=== PATIENT | female | born 1935 | race Caucasian/White ===

== ENCOUNTER 2017-07-15 03:32 | Inpatient (IN) | payer MEDICAID ==
[~2017-07-15] VITALS: Ht 167.6 cm; Wt 73.1 kg
[2017-07-15] VITALS (7 sets, daily range): BP systolic 139–163; BP diastolic 56–81
[~2017-07-15 03:32] MED LIST: AMLO5TAB4 PO; ASPI-1159 PO; ATOR20TA PO; INSU3INS6 SUBCUT; LOSA100T14 PO; OCD MT
[2017-07-15] MEDS ORDERED: ONDANSETRON HCL 4MG/2ML VIAL IV STA (04:03)
[2017-07-15] MEDS ORDERED: SODIUM CHLORIDE 0.9% 1,000 ML IV ONE (04:03)
[2017-07-15] MEDS ORDERED: MORPHINE SULFATE 4 MG/ML CPJ (NOT FOR IM USE) IV ONE (04:15)
[2017-07-15] MEDS ORDERED: DEXT 10% WATER 1,000 ML IV ONE (04:38)
[2017-07-15 04:49] LABS: CARBON DIOXIDE 19 mEq/L (21-32); CHLORIDE 115 mEq/L (98-107); TROPONIN I < 0.02 ng/mL (0.00-0.04)
[2017-07-15 04:50] LABS: BASOPHILS % 0.3 % (0.0-2.0); EOSINOPHILS % 0.1 % (0.0-5.0); HEMATOCRIT. 32.2 % (36.0-48.0); HEMOGLOBIN. 10.8 g/dL (12.0-16.0); LYMPHOCYTES % 17.9 % (20.0-50.0); MEAN CORPUSCULAR HEMOGLOBIN 30.2 pg (28.0-32.0); MEAN CORPUSCULAR VOLUME 90.1 fL (81.0-99.0); MEAN PLATELET VOLUME 8.8 fl (7.4-10.4); MONOCYTES % 2.4 % (2.0-8.0); NEUTROPHILS % 79.3 % (40.0-76.0); PLATELET 193 x1000/uL (130-400); RED BLOOD CELL COUNT 3.58 mill/uL (4.2-5.4)
[2017-07-15] MEDS ORDERED: ACETAMINOPHEN 325MG TABLET PO PRN ×2 (05:30→08:15)
[2017-07-15 06:46] LABS: CLARITY URINE CLEAR (CLEAR); COLOR URINE YELLOW (YELLOW); GLUCOSE URINE TRACE (NEGATIVE); KETONES URINE NEGATIVE (NEGATIVE); LEUKOCYTE ESTERASE URINE NEGATIVE (NEGATIVE); NITRITE URINE NEGATIVE (NEGATIVE); OCCULT BLOOD URINE TRACE (NEGATIVE); PH URINE 5.5 (4.5-8.0); PROTEIN URINE 4+ (NEGATIVE); SPECIFIC GRAVITY URINE 1.018 (1.005-1.030); UROBILINOGEN URINE 0.2 E.U./dL (0.2-1.0)
[2017-07-15] MEDS ORDERED: NA PHOS,M-B/NA PHOS,DI-BA ENEMA 118ML PR PRN (08:15)
[2017-07-15] MEDS ORDERED: ENOXAPARIN 40MG/0.4ML SYR SUBCUT SCH (08:15)
[2017-07-15] MEDS ORDERED: GUAIFENESIN 200MG/10ML SUGAR FREE UDC PO PRN (08:15)
[2017-07-15] MEDS ORDERED: MAGNESIUM/ALUMINUM HYDROXIDE/SIMETHICONE 30ML UDC PO PRN (08:15)
[2017-07-15] MEDS ORDERED: HYDROCODONE/ACETAMINOPHEN 5/325MG TABLET PO PRN (08:15)
[2017-07-15] MEDS ORDERED: ACETAMINOPHEN 650MG/20.3ML UDC GT PRN (08:15)
[2017-07-15] MEDS ORDERED: DEXTROSE 50% WATER 50ML SYRINGE IV PRN (08:15)
[2017-07-15] MEDS ORDERED: ACETAMINOPHEN 650MG SUPP PR PRN (08:15)
[2017-07-15] MEDS ORDERED: ONDANSETRON HCL 4MG/2ML VIAL IV PRN (08:15)
[2017-07-15] MEDS ORDERED: DOCUSATE SODIUM 100MG CAPSULE PO PRN (08:15)
[2017-07-15] MEDS ORDERED: SODIUM CHLORIDE 0.45% 1,000 ML IV SCH (08:15)
[2017-07-15] MEDS ORDERED: IPRATROPIUM/ALBUTEROL 0.5-3(2.5)MG/3ML NEB INH PRN (11:00)
[2017-07-15 12:30] LABS: CHLORIDE 114 mEq/L (98-107)
[2017-07-15 12:38] LABS: CARBON DIOXIDE 21 mEq/L (21-32)
[2017-07-15] MEDS: INSULIN LISPRO 100 UNITS/ML SUBCUT SCH ×3 (13:00→20:57)
[2017-07-15] MEDS: BLOOD SUGAR DIAGNOSTIC STRIP TEST SCH ×3 (13:21→20:46)
[2017-07-15] MEDS: SODIUM CHLORIDE 0.9% INJ 3ML FLUSH IVF SCH ×2 (13:22→22:00)
[2017-07-15] MEDS: ENOXAPARIN 30MG/0.3ML SYR SUBCUT SCH (13:23)
[2017-07-15 16:20] LABS: CREATINE KINASE 136 IU/L (26-192); TROPONIN I < 0.02 ng/mL (0.00-0.04)
[2017-07-15] MEDS ORDERED: FUROSEMIDE 40MG/4ML VIAL IVP NR (18:30)
[2017-07-15 18:42] LABS: BG BASE EXCESS -5.9 mmol/L (-2.0-2.0); BG CARBOXYHEMOGLOBIN 0.3 % (0.5-1.5); BG DEOXYHEMOGLOBIN 9.2 % (0.0-5.0); BG FRACTION INSPIRED OXYGEN 32; BG HCO3 ACT 19.3 mmol/L (22.0-26.0); BG METHEMOGLOBIN 0.3 % (0.0-1.5); BG OXYGEN SATURATION 90.7 % (92.0-98.5); BG OXYHEMOGLOBIN 90.2 % (94.0-97.0); BG PCO2 36.6 mmHg (35.0-45.0); BG PH 7.339 (7.350-7.450); BG PO2 59.2 mmHg (75.0-100.0); BG SAMPLE SITE RIGHT RADIAL; BG TOTAL HEMOGLOBIN 10.8 g/dL (12.0-18.0); BG VENT MODE NASAL CANNULA
[2017-07-15] MEDS: CLONIDINE 0.1MG TABLET PO PRN (19:08)
[2017-07-15 23:37] LABS: CREATINE KINASE 118 IU/L (26-192); TROPONIN I < 0.02 ng/mL (0.00-0.04)
[2017-07-16] VITALS (11 sets, daily range): BP systolic 130–168; BP diastolic 46–92
[2017-07-16] MEDS: CLONIDINE 0.1MG TABLET PO PRN (02:26)
[2017-07-16] MEDS: SODIUM CHLORIDE 0.9% INJ 3ML FLUSH IVF SCH ×3 (06:00→21:02)
[2017-07-16] MEDS: INSULIN LISPRO 100 UNITS/ML SUBCUT SCH ×4 (07:30→21:02)
[2017-07-16] MEDS: BLOOD SUGAR DIAGNOSTIC STRIP TEST SCH ×4 (07:30→20:58)
[2017-07-16] MEDS ORDERED: FURO20TA4 PO (08:23)
[2017-07-16] MEDS ORDERED: RANI150C12 PO (08:23)
[2017-07-16] MEDS ORDERED: OMEP20CA10 PO (08:23)
[2017-07-16] MEDS ORDERED: TRAM50TA3 PO (08:23)
[2017-07-16] MEDS ORDERED: SITA50TA3 PO (08:23)
[2017-07-16] MEDS ORDERED: ALEN70TA46 PO (08:23)
[2017-07-16] MEDS ORDERED: [UNRECOGNIZED DRUG - OTHER] (08:23)
[2017-07-16] MEDS: ENOXAPARIN 30MG/0.3ML SYR SUBCUT SCH (08:43)
[2017-07-16 11:18] LABS: *AMPHETAMINES SCREEN URINE NEGATIVE (NEGATIVE); *BARBITURATES SCREEN URINE NEGATIVE (NEGATIVE); *BENZODIAZEPINES SCREEN URINE NEGATIVE (NEGATIVE); *COCAINE SCREEN URINE NEGATIVE (NEGATIVE); CANNABINOID URINE SCREEN NEGATIVE (NEGATIVE); METHADONE URINE SCREEN NEGATIVE (NEGATIVE); OPIATES URINE SCREEN PRESUMTIVE POSITIVE (NEGATIVE); PHENCYCLIDINE URINE SCREEN NEGATIVE (NEGATIVE)
[2017-07-16] MEDS ORDERED: FUROSEMIDE 40MG TABLET PO SCH (15:45)
[2017-07-16] MEDS ORDERED: BENAZEPRIL 20MG TABLET PO SCH (15:45)
[2017-07-16] MEDS ORDERED: FUROSEMIDE 40MG/4ML VIAL IVP SCH (17:30)
[2017-07-16] MEDS ORDERED: LEVOFLOXACIN 500MG TABLET PO SCH (17:30)
[2017-07-16] MEDS ORDERED: LEVOFLOXACIN 500MG TABLET PO NR (18:00)
[2017-07-16 18:40] LABS: BASOPHILS % 0.4 % (0.0-2.0); LYMPHOCYTES % 28.4 % (20.0-50.0); MEAN CORPUSCULAR HEMOGLOBIN 30.1 pg (28.0-32.0); MEAN CORPUSCULAR VOLUME 90.4 fL (81.0-99.0); MONOCYTES % 11.8 % (2.0-8.0); NEUTROPHILS % 56.4 % (40.0-76.0); PLATELET 155 x1000/uL (130-400); RED BLOOD CELL COUNT 2.98 mill/uL (4.2-5.4); RED CELL DISTRIBUTION WIDTH 13.9 % (11.6-14.6)
[2017-07-16 18:53] LABS: CARBON DIOXIDE 22 mEq/L (21-32); CHLORIDE 113 mEq/L (98-107)
[2017-07-16 20:51] LABS: CLARITY URINE CLEAR (CLEAR); COLOR URINE YELLOW (YELLOW); GLUCOSE URINE TRACE (NEGATIVE); KETONES URINE NEGATIVE (NEGATIVE); LEUKOCYTE ESTERASE URINE NEGATIVE (NEGATIVE); NITRITE URINE NEGATIVE (NEGATIVE); OCCULT BLOOD URINE 1+ (NEGATIVE); PH URINE 6.5 (4.5-8.0); PROTEIN URINE 3+ (NEGATIVE); UROBILINOGEN URINE 0.2 E.U./dL (0.2-1.0)
[2017-07-17] VITALS (7 sets, daily range): BP systolic 140–176; BP diastolic 55–68
[2017-07-17] MEDS: CLONIDINE 0.1MG TABLET PO PRN (04:42)
[2017-07-17] MEDS: INSULIN LISPRO 100 UNITS/ML SUBCUT SCH ×2 (08:00→12:08)
[2017-07-17] MEDS: BLOOD SUGAR DIAGNOSTIC STRIP TEST SCH ×2 (08:02→11:38)
[2017-07-17] MEDS: ENOXAPARIN 30MG/0.3ML SYR SUBCUT SCH (08:38)
[2017-07-17] MEDS: SODIUM CHLORIDE 0.9% INJ 3ML FLUSH IVF SCH (14:01)
[2017-07-17] MEDS ORDERED: LEVO250T2 PO (14:54)
[2017-07-18] MEDS ORDERED: LEVOFLOXACIN 250MG TABLET PO SCH (11:00)
== END 2017-07-17 15:45 | disposition home or self-care (01) | DRG 52 ==
LOC: ER 03:37 → ENRESERV 06:56 → CANRESERV 06:56 → 5EST 09:09 → EDBEDREQTM 09:11 → EDBEDREQSVC 09:11 → ENRESERV 09:54 → 5EST 07-16 21:54
PROVIDERS: ADMIT Family Medicine; ATTEND Family Medicine
DX: G93.41 Metabolic encephalopathy (principal); N17.0 Acute kidney failure with tubular necrosis; J96.01 Acute respiratory failure with hypoxia; I13.0 Hypertensive heart and chronic kidney disease with heart failure and stage 1 through stage 4 chronic kidney disease, or unspecified chronic kidney disease; E11.21 Type 2 diabetes mellitus with diabetic nephropathy; E11.649 Type 2 diabetes mellitus with hypoglycemia without coma; I50.9 Heart failure, unspecified; E11.22 Type 2 diabetes mellitus with diabetic chronic kidney disease; E78.5 Hyperlipidemia, unspecified; E87.5 Hyperkalemia; N18.4 Chronic kidney disease, stage 4 (severe); J44.1 Chronic obstructive pulmonary disease with (acute) exacerbation; E66.9 Obesity, unspecified; R09.02 Hypoxemia; Z79.4 Long term (current) use of insulin; Z68.26 Body mass index [BMI] 26.0-26.9, adult; Z79.899 Other long term (current) drug therapy; Z79.82 Long term (current) use of aspirin
CPT/HCPCS: 36415; 36600; 70450; 71010; 76770; 80048; 80053; 80305; 81001; 82040; 82375; 82550; 82805; 82962; 83036; 84484; 85025; 93005; 93306; 96361; 96374; 96375; 99285; J1650; J1815; J1940; J2270; J2405; J7030

== ENCOUNTER 2018-07-31 22:38 | Inpatient (IN) | payer MEDICAID ==
[~2018-07-31] VITALS: Ht 157.5 cm; Wt 59.6 kg
[~2018-07-31 22:38] MED LIST changes: -ATOR20TA PO; +FURO-151 PO; +HYDR-4135 PO; -INSU3INS6 SUBCUT; +LEVO500S PO; -LOSA100T14 PO; +MULT-1146 PO; +RANI150C12 PO; +TIMO5DRO27 OP
[2018-07-31] MEDS ORDERED: ACETAMINOPHEN 325MG TABLET PO STA (23:58)
[2018-07-31] MEDS ORDERED: ONDANSETRON HCL 4MG/2ML INJ IV STA (23:58)
[2018-08-01] MEDS ORDERED: VANCOMYCIN 1 G PREMIX 200 ML IV ONE
[2018-08-01] MEDS ORDERED: PIPERACILLIN/TAZ 3.375G PREMIX 50 ML IV ONE
[2018-08-01 01:00] LABS: BASOPHILS % 0.1 % (0.0-2.0); EOSINOPHILS % 0.5 % (0.0-5.0); HEMATOCRIT. 28.6 % (36.0-48.0); LYMPHOCYTES % 9.1 % (20.0-50.0); MEAN CORPUSCULAR HEMOGLOBIN 34.9 pg (28.0-32.0); MEAN CORPUSCULAR VOLUME 99.7 fL (81.0-99.0); MONOCYTES % 7.5 % (2.0-8.0); NEUTROPHILS % 82.8 % (40.0-76.0); PLATELET 143 x1000/uL (130-400); RED BLOOD CELL COUNT 2.86 mill/uL (4.2-5.4); RED CELL DISTRIBUTION WIDTH 14.4 % (11.6-14.6)
[2018-08-01 01:01] LABS: PROTHROMBIN TIME 10.4 sec (9.1-11.1)
[2018-08-01 01:11] LABS: CHLORIDE 100 mEq/L (98-107)
[2018-08-01 01:56] LABS: CLARITY URINE CLEAR (CLEAR); COLOR URINE YELLOW (YELLOW); KETONES URINE NEGATIVE (NEGATIVE); LEUKOCYTE ESTERASE URINE NEGATIVE (NEGATIVE); NITRITE URINE NEGATIVE (NEGATIVE); OCCULT BLOOD URINE TRACE (NEGATIVE); PH URINE >=9.0 (4.5-8.0); PROTEIN URINE 4+ (NEGATIVE); SPECIFIC GRAVITY URINE 1.014 (1.005-1.030); UROBILINOGEN URINE 0.2 E.U./dL (0.2-1.0)
[2018-08-01] MEDS ORDERED: SODIUM BICARBONATE 8.4% 1 MEQ/ML 50ML SYR IV ONE (03:15)
[2018-08-01] MEDS ORDERED: DEXTROSE 50% WATER 50ML SYRINGE IV ONE (03:15)
[2018-08-01] MEDS ORDERED: INSULIN REGULAR (HUMULIN R) 300UNITS/3ML IV ONE (03:15)
[2018-08-01] MEDS ORDERED: IPRATROPIUM/ALBUTEROL 0.5-3(2.5)MG/3ML NEB INH PRN (06:00)
[2018-08-01] MEDS ORDERED: ACETAMINOPHEN 325MG TABLET PO PRN (06:00)
[2018-08-01] MEDS ORDERED: ONDANSETRON HCL 4MG/2ML INJ IV PRN (06:00)
[2018-08-01] MEDS ORDERED: DOCUSATE SODIUM 100MG CAPSULE PO PRN (06:00)
[2018-08-01 07:12] LABS: CREATINE KINASE MB FRACTION 1.1 ng/mL (0.5-3.6)
[2018-08-01 09:30] LABS: AMMONIA 11 uMol/L (<32)
[2018-08-01 09:41] LABS: T4 FREE 0.98 ng/dL (0.76-1.46)
[2018-08-01 09:45] VITALS: BP 169/58
[2018-08-01 09:55] LABS: FOLIC ACID (FOLATE) SERUM >20 ng/mL ng/mL (>5.38); VITAMIN B12 SERUM 418 pg/mL (211-911)
[2018-08-01] MEDS ORDERED: DEXTROSE 50% WATER 50ML SYRINGE IV PRN (10:30)
[2018-08-01 12:00] VITALS: BP_SYST 141; BP_SYST 166; BP_DIAS 56; BP_DIAS 59
[2018-08-01] MEDS: BLOOD SUGAR DIAGNOSTIC STRIP TEST SCH ×3 (12:14→20:40)
[2018-08-01] MEDS: INSULIN LISPRO 100 UNITS/ML SUBCUT SCH ×3 (12:15→20:40)
[2018-08-01 16:00] VITALS: BP 150/47
[2018-08-01 16:57] LABS: CREATINE KINASE 62 IU/L (26-192); CREATINE KINASE MB FRACTION < 1.0 ng/mL (0.5-3.6)
[2018-08-01 20:00] VITALS: BP 127/46
[2018-08-01] MEDS ORDERED: VANCOMYCIN 750 MG PREMIX 150 ML IV NR (20:00)
[2018-08-01] MEDS: IRON SUCROSE COMPLEX 100 MG/5 ML ML IV SCH (20:40)
[2018-08-01] MEDS ORDERED: EPOETIN ALFA 4000UNITS/ML VIAL SUBCUT SCH (21:00)
[2018-08-01 23:26] LABS: *AMPHETAMINES SCREEN URINE NEGATIVE (NEGATIVE); *BARBITURATES SCREEN URINE NEGATIVE (NEGATIVE); *BENZODIAZEPINES SCREEN URINE NEGATIVE (NEGATIVE); *COCAINE SCREEN URINE NEGATIVE (NEGATIVE); CANNABINOID URINE SCREEN NEGATIVE (NEGATIVE); METHADONE URINE SCREEN NEGATIVE (NEGATIVE); OPIATES URINE SCREEN NEGATIVE (NEGATIVE); PHENCYCLIDINE URINE SCREEN NEGATIVE (NEGATIVE)
[2018-08-02] VITALS: BP 143/50
[2018-08-02 04:00] VITALS: BP 134/51
[2018-08-02 06:30] LABS: BASOPHILS % 0.3 % (0.0-2.0); EOSINOPHILS % 2.5 % (0.0-5.0); HEMATOCRIT. 24.4 % (36.0-48.0); HEMOGLOBIN. 8.4 g/dL (12.0-16.0); LYMPHOCYTES % 19.4 % (20.0-50.0); MEAN CORPUSCULAR HEMOGLOBIN 34.6 pg (28.0-32.0); MEAN CORPUSCULAR VOLUME 100.7 fL (81.0-99.0); MEAN PLATELET VOLUME 8.6 fl (7.4-10.4); MONOCYTES % 12.5 % (2.0-8.0); NEUTROPHILS % 65.3 % (40.0-76.0); PLATELET 120 x1000/uL (130-400); RED BLOOD CELL COUNT 2.43 mill/uL (4.2-5.4); RED CELL DISTRIBUTION WIDTH 14.3 % (11.6-14.6)
[2018-08-02] MEDS: BLOOD SUGAR DIAGNOSTIC STRIP TEST SCH ×4 (06:59→20:37)
[2018-08-02] MEDS: INSULIN LISPRO 100 UNITS/ML SUBCUT SCH ×4 (07:00→20:36)
[2018-08-02 07:02] LABS: PHOSPHORUS 5.6 mg/dL (2.5-4.9)
[2018-08-02 08:00] VITALS: BP 138/51
[2018-08-02] MEDS ORDERED: PNEUMOCOCCAL 23-VAL P-SAC VAC 0.5 ML IM ONE (09:00)
[2018-08-02] MEDS ORDERED: INFLUENZA VIRUS VACCINE(AFLURIA) 0.5ML SYR IM ONE (09:00)
[2018-08-02] MEDS ORDERED: TUBERCULIN,PURIF.PROT.DERIV. 5 TU/0.1 ML SYR ID ONE (09:00)
[2018-08-02] MEDS: FOLIC ACID/VITAMIN B COMP W-C TABLET PO SCH (10:13)
[2018-08-02] MEDS: CEFTRIAXONE 1 G PREMIX 50 ML IV SCH (10:14)
[2018-08-02] MEDS: SEVELAMER CARBONATE 800 MG TABLET PO SCH ×3 (10:18→18:03)
[2018-08-02 12:00] VITALS: BP 160/51
[2018-08-02] MEDS: PANTOPRAZOLE 40MG DR TABLET PO SCH (13:08)
[2018-08-02 16:00] VITALS: BP 169/65
[2018-08-02] MEDS ORDERED: FERR325T6 MT (17:09)
[2018-08-02] MEDS ORDERED: SIMV20TA6 MT (17:10)
[2018-08-02] MEDS ORDERED: CALC0.253 MT (17:11)
[2018-08-02] MEDS ORDERED: DOCU-138 MT (17:13)
[2018-08-02] MEDS ORDERED: ALENDRONATE PO (17:15)
[2018-08-02 20:00] VITALS: BP 175/56
[2018-08-02] MEDS: CLONIDINE 0.1MG TABLET PO PRN (20:32)
[2018-08-02] MEDS: IRON SUCROSE COMPLEX 100 MG/5 ML ML IV SCH (20:33)
[2018-08-03] VITALS: BP 158/49
[2018-08-03 04:00] VITALS: BP 126/47
[2018-08-03] MEDS: PANTOPRAZOLE 40MG DR TABLET PO SCH (06:17)
[2018-08-03] MEDS: INSULIN LISPRO 100 UNITS/ML SUBCUT SCH ×4 (06:51→20:36)
[2018-08-03] MEDS: BLOOD SUGAR DIAGNOSTIC STRIP TEST SCH ×4 (06:51→20:44)
[2018-08-03 07:56] LABS: BASOPHILS % 0.3 % (0.0-2.0); EOSINOPHILS % 3.9 % (0.0-5.0); HEMATOCRIT. 21.5 % (36.0-48.0); HEMOGLOBIN. 7.5 g/dL (12.0-16.0); LYMPHOCYTES % 27.4 % (20.0-50.0); MEAN CORPUSCULAR HEMOGLOBIN 34.6 pg (28.0-32.0); MEAN CORPUSCULAR VOLUME 99.5 fL (81.0-99.0); MEAN PLATELET VOLUME 8.7 fl (7.4-10.4); NEUTROPHILS % 56.4 % (40.0-76.0); PLATELET 115 x1000/uL (130-400); RED BLOOD CELL COUNT 2.16 mill/uL (4.2-5.4); RED CELL DISTRIBUTION WIDTH 14.3 % (11.6-14.6)
[2018-08-03 08:00] VITALS: BP 142/52
[2018-08-03] MEDS ORDERED: HEPATITIS B VIRUS VACCINE-PF 10 MCG/0.5 VIAL IM NR (08:00)
[2018-08-03] MEDS: FOLIC ACID/VITAMIN B COMP W-C TABLET PO SCH (08:29)
[2018-08-03] MEDS: SEVELAMER CARBONATE 800 MG TABLET PO SCH ×3 (08:29→18:00)
[2018-08-03] MEDS: CEFTRIAXONE 1 G PREMIX 50 ML IV SCH (08:30)
[2018-08-03 12:00] VITALS: BP 164/48
[2018-08-03 16:00] VITALS: BP 128/52
[2018-08-03 19:13] LABS: TOTAL IRON BINDING CAPACITY 172 ug/dL (250-450)
[2018-08-03 19:56] VITALS: BP 158/48
[2018-08-03] MEDS: IRON SUCROSE COMPLEX 100 MG/5 ML ML IV SCH (20:35)
[2018-08-03] MEDS ORDERED: EPOETIN ALFA 4000UNITS/ML VIAL SUBCUT NR ×2 (22:00→22:15)
[2018-08-04] VITALS: BP 145/46
[2018-08-04 04:00] VITALS: BP 153/49
[2018-08-04] MEDS: BLOOD SUGAR DIAGNOSTIC STRIP TEST SCH ×4 (06:32→21:05)
[2018-08-04] MEDS: PANTOPRAZOLE 40MG DR TABLET PO SCH (06:43)
[2018-08-04] MEDS: INSULIN LISPRO 100 UNITS/ML SUBCUT SCH ×4 (06:45→21:05)
[2018-08-04 07:05] LABS: BASOPHILS % 0.5 % (0.0-2.0); HEMATOCRIT. 23.7 % (36.0-48.0); HEMOGLOBIN. 8.2 g/dL (12.0-16.0); LYMPHOCYTES % 25.5 % (20.0-50.0); MEAN CORPUSCULAR HEMOGLOBIN 34.5 pg (28.0-32.0); MEAN CORPUSCULAR VOLUME 99.6 fL (81.0-99.0); MEAN PLATELET VOLUME 8.8 fl (7.4-10.4); MONOCYTES % 12.3 % (2.0-8.0); NEUTROPHILS % 56.7 % (40.0-76.0); PLATELET 124 x1000/uL (130-400); RED BLOOD CELL COUNT 2.37 mill/uL (4.2-5.4)
[2018-08-04 08:00] VITALS: BP 153/56
[2018-08-04] MEDS: SEVELAMER CARBONATE 800 MG TABLET PO SCH ×3 (08:11→17:16)
[2018-08-04] MEDS: CEFTRIAXONE 1 G PREMIX 50 ML IV SCH (08:11)
[2018-08-04] MEDS: FOLIC ACID/VITAMIN B COMP W-C TABLET PO SCH (08:11)
[2018-08-04 12:44] VITALS: BP 161/60
[2018-08-04] MEDS: CLONIDINE 0.1MG TABLET PO PRN (16:11)
[2018-08-04 16:54] VITALS: BP 163/55
[2018-08-04] MEDS ORDERED: AMLODIPINE 5MG TABLET PO SCH (18:30)
[2018-08-04 20:00] VITALS: BP 158/52
[2018-08-04] MEDS: IRON SUCROSE COMPLEX 100 MG/5 ML ML IV SCH (20:33)
[2018-08-05] VITALS: BP 143/47
[2018-08-05 04:00] VITALS: BP 150/64
[2018-08-05] MEDS: PANTOPRAZOLE 40MG DR TABLET PO SCH (05:57)
[2018-08-05] MEDS: INSULIN LISPRO 100 UNITS/ML SUBCUT SCH ×3 (05:57→17:25)
[2018-08-05] MEDS: SEVELAMER CARBONATE 800 MG TABLET PO SCH ×3 (05:57→17:19)
[2018-08-05] MEDS: BLOOD SUGAR DIAGNOSTIC STRIP TEST SCH ×3 (05:58→17:19)
[2018-08-05 07:10] LABS: BASOPHILS % 0.4 % (0.0-2.0); EOSINOPHILS % 4.4 % (0.0-5.0); HEMATOCRIT. 23.5 % (36.0-48.0); HEMOGLOBIN. 8.1 g/dL (12.0-16.0); LYMPHOCYTES % 26.1 % (20.0-50.0); MEAN CORPUSCULAR HEMOGLOBIN 34.6 pg (28.0-32.0); MEAN PLATELET VOLUME 8.8 fl (7.4-10.4); MONOCYTES % 12.1 % (2.0-8.0); PLATELET 144 x1000/uL (130-400); RED BLOOD CELL COUNT 2.35 mill/uL (4.2-5.4); RED CELL DISTRIBUTION WIDTH 13.5 % (11.6-14.6)
[2018-08-05 08:00] VITALS: BP 165/86
[2018-08-05] MEDS: FOLIC ACID/VITAMIN B COMP W-C TABLET PO SCH (08:58)
[2018-08-05] MEDS: POLYETHYLENE GLYCOL 3350 (17GM) 1 DOSE PACK PO SCH ×2 (08:58→09:08)
[2018-08-05] MEDS: CEFTRIAXONE 1 G PREMIX 50 ML IV SCH (08:58)
[2018-08-05 12:00] VITALS: BP 172/54
[2018-08-05 16:00] VITALS: BP 136/49
[2018-08-05 16:30] VITALS: BP 136/49
[2018-08-05] MEDS ORDERED: HYDRALAZINE HCL 50MG TABLET PO SCH (22:00)
== END 2018-08-05 17:55 | disposition home or self-care (01) | DRG 720 ==
LOC: ER 22:38 → 8WST 08-01 03:17 → EDBEDREQ 08-01 03:26 → EDBEDREQTM 08-01 03:26 → ENRESERV 08-01 08:15
PROVIDERS: ADMIT Internal Medicine; ATTEND Internal Medicine
PROC: 5A1D70Z Performance of Urinary Filtration, Intermittent, Less than 6 Hours Per Day (ICD-10-PCS; 2018-08-01)
PROC: 5A1D70Z Performance of Urinary Filtration, Intermittent, Less than 6 Hours Per Day (ICD-10-PCS; 2018-08-02)
PROC: 5A1D70Z Performance of Urinary Filtration, Intermittent, Less than 6 Hours Per Day (ICD-10-PCS; principal; 2018-08-04)
DX: A41.9 Sepsis, unspecified organism (principal); G92 Toxic encephalopathy; E11.22 Type 2 diabetes mellitus with diabetic chronic kidney disease; I12.0 Hypertensive chronic kidney disease with stage 5 chronic kidney disease or end stage renal disease; N18.6 End stage renal disease; D63.8 Anemia in other chronic diseases classified elsewhere; N39.0 Urinary tract infection, site not specified; E78.00 Pure hypercholesterolemia, unspecified; E78.5 Hyperlipidemia, unspecified; M48.061 Spinal stenosis, lumbar region without neurogenic claudication; Z87.01 Personal history of pneumonia (recurrent); Z99.2 Dependence on renal dialysis; Z79.82 Long term (current) use of aspirin; Z79.899 Other long term (current) drug therapy
CPT/HCPCS: 36415; 51702; 70551; 71045; 80048; 80061; 80305; 82140; 82270; 82550; 82553; 82607; 82728; 82746; 82962; 83036; 83540; 83550; 83605; 83735; 84100; 84145; 84439; 84443; 84481; 84484; 85044; 86705; 86706; 90585; 90743; 93005; 93306; 93970; 96365; 96366; 96375; 97116; 97162; 99291; J0696; J0885; J1815; J2405; J2543; J3370; J3490; J7030; J7050; A4315

== ENCOUNTER 2018-09-24 13:59 | Inpatient (IN) | payer MEDICAID ==
[~2018-09-24] VITALS: Ht 154.9 cm; Wt 61.0 kg
[~2018-09-24 13:59] MED LIST changes: +ALENDRONATE PO; +CALC0.253 PO; +DOCU-138 PO; +FERR325T6 PO; -OCD MT; +OCD PO; +SIMV20TA6 PO
[2018-09-24] MEDS ORDERED: KETOROLAC 30MG/ML VIAL IV STA (15:18)
[2018-09-24] MEDS ORDERED: SODIUM CHLORIDE 0.9% 1000ML BAG (SEPSIS BOLUS) IV ONE (15:30)
[2018-09-24 15:50] LABS: BASOPHILS % 0.5 % (0.0-2.0); EOSINOPHILS % 2.9 % (0.0-5.0); HEMATOCRIT. 25.3 % (36.0-48.0); HEMOGLOBIN. 8.7 g/dL (12.0-16.0); LYMPHOCYTES % 17.4 % (20.0-50.0); MEAN CORPUSCULAR HEMOGLOBIN 33.9 pg (28.0-32.0); MEAN CORPUSCULAR VOLUME 98.4 fL (81.0-99.0); MEAN PLATELET VOLUME 7.9 fl (7.4-10.4); MONOCYTES % 10.1 % (2.0-8.0); NEUTROPHILS % 69.1 % (40.0-76.0); PLATELET 164 x1000/uL (130-400); RED BLOOD CELL COUNT 2.57 mill/uL (4.2-5.4); RED CELL DISTRIBUTION WIDTH 14.8 % (11.6-14.6)
[2018-09-24 15:53] LABS: CHLORIDE 106 mEq/L (98-107); INR 1.1; PROTHROMBIN TIME 11.1 sec (9.1-11.1)
[2018-09-24] MEDS ORDERED: ALBUTEROL (0.083%) 2.5MG/3ML NEB HHN STA (15:56)
[2018-09-24] MEDS ORDERED: IPRATROPIUM BROMIDE (0.02%) 0.5MG/2.5ML NEB HHN STA (15:56)
[2018-09-24] MEDS ORDERED: FUROSEMIDE 40MG/4ML VIAL IVP ONE (17:00)
[2018-09-24] MEDS ORDERED: ENALAPRIL 5MG TABLET PO SCH (17:00)
[2018-09-24 17:18] LABS: CLARITY URINE CLEAR (CLEAR); COLOR URINE YELLOW (YELLOW); KETONES URINE TRACE (NEGATIVE); LEUKOCYTE ESTERASE URINE TRACE (NEGATIVE); NITRITE URINE NEGATIVE (NEGATIVE); OCCULT BLOOD URINE NEGATIVE (NEGATIVE); PH URINE >=9.0 (4.5-8.0); PROTEIN URINE 4+ (NEGATIVE); SPECIFIC GRAVITY URINE 1.016 (1.005-1.030)
[2018-09-24] MEDS ORDERED: ENALAPRIL 2.5MG/2ML VIAL 2ML IV ONE (17:30)
[2018-09-25 02:00] VITALS: BP 189/68
[2018-09-25] MEDS ORDERED: ALEN70TA46 PO (02:26)
[2018-09-25 04:00] VITALS: BP 181/64
[2018-09-25] MEDS ORDERED: CLONIDINE 0.1MG TABLET PO PRN (06:45)
[2018-09-25] MEDS ORDERED: IPRATROPIUM/ALBUTEROL 0.5-3(2.5)MG/3ML NEB HHN PRN (06:45)
[2018-09-25] MEDS ORDERED: HYDRALAZINE 20MG/ML VIAL IV PRN (06:45)
[2018-09-25] MEDS ORDERED: DEXTROSE 50% WATER 50ML SYRINGE IV PRN (07:00)
[2018-09-25] MEDS ORDERED: DOCUSATE SODIUM 100MG CAPSULE PO PRN (07:15)
[2018-09-25] MEDS: BLOOD SUGAR DIAGNOSTIC STRIP TEST SCH ×4 (07:18→21:00)
[2018-09-25] MEDS: INSULIN LISPRO 100 UNITS/ML SUBCUT SCH ×4 (07:26→21:00)
[2018-09-25 08:00] VITALS: BP 186/68
[2018-09-25] MEDS: CALCIUM CARBONATE/VITAMIN D3 500MG TABLET PO SCH ×2 (08:22→16:11)
[2018-09-25] MEDS: FUROSEMIDE 40MG TABLET PO SCH (08:22)
[2018-09-25] MEDS: MULTIVITAMINS,THER W-MINERALS TABLET PO SCH (08:22)
[2018-09-25] MEDS: ASPIRIN 81MG TABLET PO SCH (08:22)
[2018-09-25] MEDS: CALCITRIOL 0.25MCG CAPSULE PO SCH (08:22)
[2018-09-25] MEDS: HYDRALAZINE HCL 50MG TABLET PO SCH ×3 (08:22→22:58)
[2018-09-25] MEDS: FERROUS SULFATE 325MG TABLET PO SCH ×3 (08:23→18:13)
[2018-09-25] MEDS ORDERED: AMLODIPINE 5MG TABLET PO SCH (09:00)
[2018-09-25 11:27] LABS: PHOSPHORUS 4.4 mg/dL (2.5-4.9)
[2018-09-25 12:00] VITALS: BP 169/62
[2018-09-25 16:00] VITALS: BP 148/79
[2018-09-25] MEDS: FAMOTIDINE 20MG TABLET PO SCH (16:11)
[2018-09-25] MEDS: TIMOLOL MALEATE 0.5% OPHTH DROPS 5ML EACHEYE SCH (16:12)
[2018-09-25 16:23] LABS: CREATINE KINASE MB FRACTION 1.9 ng/mL (0.5-3.6)
[2018-09-25 17:51] LABS: *AMPHETAMINES SCREEN URINE NEGATIVE (NEGATIVE); *BARBITURATES SCREEN URINE NEGATIVE (NEGATIVE)
[2018-09-25 17:52] LABS: *BENZODIAZEPINES SCREEN URINE NEGATIVE (NEGATIVE); *COCAINE SCREEN URINE NEGATIVE (NEGATIVE); CANNABINOID URINE SCREEN NEGATIVE (NEGATIVE); METHADONE URINE SCREEN NEGATIVE (NEGATIVE); OPIATES URINE SCREEN NEGATIVE (NEGATIVE)
[2018-09-25 17:53] LABS: PHENCYCLIDINE URINE SCREEN NEGATIVE (NEGATIVE)
[2018-09-25] MEDS: LOSARTAN POTASSIUM 100 MG TABLET PO SCH (18:13)
[2018-09-25] MEDS: DILTIAZEM HCL 60MG TABLET PO SCH ×2 (18:14→23:03)
[2018-09-25 20:00] VITALS: BP 162/58
[2018-09-25] MEDS: ATORVASTATIN CALCIUM 10MG TABLET PO SCH (22:58)
[2018-09-26] VITALS (7 sets, daily range): BP systolic 154–178; BP diastolic 47–78
[2018-09-26] MEDS ORDERED: IRON SUCROSE COMPLEX 100 MG/5 ML ML IV NR
[2018-09-26] MEDS: HYDRALAZINE HCL 50MG TABLET PO SCH ×3 (06:00→20:35)
[2018-09-26] MEDS: DILTIAZEM HCL 60MG TABLET PO SCH ×3 (06:00→17:46)
[2018-09-26] MEDS ORDERED: EPOETIN ALFA 4000UNITS/ML VIAL SUBCUT NR (06:00)
[2018-09-26] MEDS: BLOOD SUGAR DIAGNOSTIC STRIP TEST SCH ×4 (06:18→20:35)
[2018-09-26 06:42] LABS: BASOPHILS % 0.3 % (0.0-2.0); EOSINOPHILS % 4.1 % (0.0-5.0); HEMATOCRIT. 21.4 % (36.0-48.0); HEMOGLOBIN. 7.3 g/dL (12.0-16.0); LYMPHOCYTES % 15.1 % (20.0-50.0); MEAN CORPUSCULAR HEMOGLOBIN 33.7 pg (28.0-32.0); MEAN CORPUSCULAR VOLUME 98.4 fL (81.0-99.0); MEAN PLATELET VOLUME 8.8 fl (7.4-10.4); MONOCYTES % 9.8 % (2.0-8.0); NEUTROPHILS % 70.7 % (40.0-76.0); PLATELET 168 x1000/uL (130-400); RED BLOOD CELL COUNT 2.18 mill/uL (4.2-5.4); RED CELL DISTRIBUTION WIDTH 14.8 % (11.6-14.6)
[2018-09-26] MEDS: INSULIN LISPRO 100 UNITS/ML SUBCUT SCH ×4 (07:16→20:39)
[2018-09-26] MEDS: ASPIRIN 81MG TABLET PO SCH (08:25)
[2018-09-26] MEDS: CALCIUM CARBONATE/VITAMIN D3 500MG TABLET PO SCH ×2 (08:25→17:47)
[2018-09-26] MEDS: FUROSEMIDE 40MG TABLET PO SCH (08:25)
[2018-09-26] MEDS: CALCITRIOL 0.25MCG CAPSULE PO SCH (08:25)
[2018-09-26] MEDS: MULTIVITAMINS,THER W-MINERALS TABLET PO SCH (08:25)
[2018-09-26] MEDS: TIMOLOL MALEATE 0.5% OPHTH DROPS 5ML EACHEYE SCH ×2 (08:26→17:47)
[2018-09-26] MEDS: LOSARTAN POTASSIUM 100 MG TABLET PO SCH (08:38)
[2018-09-26] MEDS: FAMOTIDINE 20MG TABLET PO SCH (17:47)
[2018-09-26] MEDS: ATORVASTATIN CALCIUM 10MG TABLET PO SCH (20:35)
[2018-09-27] VITALS: BP 151/36
[2018-09-27] MEDS ORDERED: IRON SUCROSE COMPLEX 100 MG/5 ML ML IV SCH
[2018-09-27] MEDS: DILTIAZEM HCL 60MG TABLET PO SCH ×3 (00:37→12:38)
[2018-09-27 04:00] VITALS: BP 162/48
[2018-09-27] MEDS: HYDRALAZINE HCL 50MG TABLET PO SCH ×2 (05:31→15:09)
[2018-09-27] MEDS: BLOOD SUGAR DIAGNOSTIC STRIP TEST SCH ×2 (05:31→12:30)
[2018-09-27 06:40] LABS: BASOPHILS % 0.4 % (0.0-2.0); EOSINOPHILS % 2.8 % (0.0-5.0); HEMATOCRIT. 23.6 % (36.0-48.0); HEMOGLOBIN. 8.2 g/dL (12.0-16.0); LYMPHOCYTES % 13.8 % (20.0-50.0); MEAN CORPUSCULAR HEMOGLOBIN 34.4 pg (28.0-32.0); MEAN CORPUSCULAR VOLUME 98.7 fL (81.0-99.0); MEAN PLATELET VOLUME 8.6 fl (7.4-10.4); PLATELET 200 x1000/uL (130-400); RED BLOOD CELL COUNT 2.39 mill/uL (4.2-5.4); RED CELL DISTRIBUTION WIDTH 14.7 % (11.6-14.6)
[2018-09-27] MEDS: INSULIN LISPRO 100 UNITS/ML SUBCUT SCH ×2 (07:59→12:38)
[2018-09-27 08:00] VITALS: BP 149/47
[2018-09-27] MEDS: MULTIVITAMINS,THER W-MINERALS TABLET PO SCH (09:02)
[2018-09-27] MEDS: CALCIUM CARBONATE/VITAMIN D3 500MG TABLET PO SCH (09:02)
[2018-09-27] MEDS: CALCITRIOL 0.25MCG CAPSULE PO SCH (09:03)
[2018-09-27] MEDS: LOSARTAN POTASSIUM 100 MG TABLET PO SCH (09:03)
[2018-09-27] MEDS: FUROSEMIDE 40MG TABLET PO SCH (09:03)
[2018-09-27] MEDS: ASPIRIN 81MG TABLET PO SCH (09:03)
[2018-09-27] MEDS: TIMOLOL MALEATE 0.5% OPHTH DROPS 5ML EACHEYE SCH (09:03)
[2018-09-27 12:00] VITALS: BP 136/57
[2018-09-27] MEDS ORDERED: LOSA100T3 PO (15:26)
[2018-09-27] MEDS ORDERED: DILT60TA35 PO ×2 (15:26→15:30)
[2018-09-27 16:00] VITALS: BP 134/67
[2018-09-27 16:34] VITALS: BP 134/67
[2018-09-27] MEDS ORDERED: EPOETIN ALFA 10000UNITS/ML VIAL SUBCUT SCH (21:00)
== END 2018-09-27 18:26 | disposition home or self-care (01) | DRG 133 ==
LOC: ER 16:59 → 7WST 17:10 → EDBEDREQTM 17:13 → EDBEDREQ 17:13 → ENRESERV 23:01 → 7WST 09-26 05:55
PROVIDERS: ADMIT Internal Medicine; ATTEND Internal Medicine
PROC: 5A1D70Z Performance of Urinary Filtration, Intermittent, Less than 6 Hours Per Day (ICD-10-PCS; principal; 2018-09-26)
DX: J96.00 Acute respiratory failure, unspecified whether with hypoxia or hypercapnia (principal); I13.2 Hypertensive heart and chronic kidney disease with heart failure and with stage 5 chronic kidney disease, or end stage renal disease; E44.0 Moderate protein-calorie malnutrition; E11.22 Type 2 diabetes mellitus with diabetic chronic kidney disease; N18.6 End stage renal disease; M48.56XA Collapsed vertebra, not elsewhere classified, lumbar region, initial encounter for fracture; D64.9 Anemia, unspecified; R07.89 Other chest pain; D63.8 Anemia in other chronic diseases classified elsewhere; I50.9 Heart failure, unspecified; Z90.49 Acquired absence of other specified parts of digestive tract; Z99.2 Dependence on renal dialysis; Z68.25 Body mass index [BMI] 25.0-25.9, adult
CPT/HCPCS: 36415; 71045; 74176; 80048; 80061; 80305; 82550; 82553; 82962; 83605; 83735; 83880; 84100; 84145; 84443; 84484; 87804; 93005; 93306; 93970; 94640; 96374; 96375; 97162; 97166; 99285; C1893; J0360; J0885; J1815; J1940; J3490; J7030; J7611